=== PATIENT | female | born 1955 | race Caucasian/White ===

== ENCOUNTER → 2016-10-28 08:42 | Outpatient (CLI) | payer MEDICAID | END | disposition home or self-care (01) | LOC: D.MRI 08:42 | DX: M54.2 Cervicalgia (principal) ==

== ENCOUNTER → 2016-11-16 11:06 | Outpatient (CLI) | payer MEDICAID | END | disposition home or self-care (01) | LOC: D.MRI 11:06 | DX: M54.2 Cervicalgia (principal) ==

== ENCOUNTER → 2018-06-06 09:31 | Outpatient (CLI) | payer MEDICAID | END | disposition home or self-care (01) | LOC: D.RAD 09:31 | DX: M54.2 Cervicalgia (principal) ==

== ENCOUNTER 2020-02-29 08:35 | Day surgery (SDC) | payer MEDICAID ==
[2020-02-28 12:24] LABS: CALC OSMOLALITY 274 mosm/kg (275-300); CALCIUM 8.9 mg/dL (8.5-10.1); CARBON DIOXIDE 27.9 mmol/L (21.0-32.0); CHLORIDE - SERUM 102 mmol/L (98-107); CREATININE - SERUM 0.7 mg/dL (0.6-1.3); GLUCOSE 179 mg/dL (74-106); SODIUM 136 mmol/L (136-145); UREA NITROGEN 10 mg/dL (7-18); eGFR NON AFRICAN AMERICAN 89 mL/min (90-120)
[2020-02-28 12:25] LABS: BASOPHILS 0.3 % (0-2); EOSINOPHILS 1.1 % (0-7); HEMATOCRIT 41.3 % (36.0-48.0); HEMOGLOBIN 13.4 g/dL (12-16); IMMATURE GRANULOCYTES 0.4 % (0-5); LYMPHOCYTES 42.8 % (15-50); MCH 28.3 pg (26.0-34.0); MCHC 32.4 g/dL (31.0-37.0); MCV 87.3 fL (80.0-100.0); MONOCYTES 6.4 % (2-11); PLATELET COUNT 199 10x3/uL (130-400); RBC 4.73 10x6/uL (4.00-5.40); RDW 13.9 % (11.5-14.5); WBC 7.1 10x3/uL (4.8-10.8)
[~2020-02-29] VITALS: Ht 165.1 cm; Wt 83.5 kg
--- NOTE | ~2020-02-29 | OP ---
PATIENT NAME: ROMEO MAST MEDICAL RECORD: [id number] :55 LOCATION:D.OPS ADMISSION DATE: SURGEON: DARRIUS BERRY MD DATE OF OPERATION: 02/29/2020 PREOPERATIVE DIAGNOSES: 1. Ventral hernia. 2. Hypertension. POSTOPERATIVE DIAGNOSES: 1. Ventral hernia. 2. Hypertension. PROCEDURE: Ventral hernia repair with 4.[address] mesh. SURGEON: Darrius Berry MD REPORT OF PROCEDURE: The patient's abdomen was prepped and draped in sterile fashion. A semicircular incision was made on the inferior aspect of the umbilicus. Electrocautery was used to dissect through the subcutaneous tissues. Just to the right of the umbilicus, there was opening that was present with a hernia sac containing omental fat. We were able to open up the hernia sac and dissect this down to the fascial edges. The hernia sac was completely excised at the fascial edges and we were able to push the omental contents back into the abdominal cavity. I then was able to stick my finger into the opening and palpate the abdominal wall and could feel no evidence of any further herniations present. We undermined the tissues around the umbilicus leaving the umbilicus in position. We were able to insert a 4.[address] mesh in an underlay fashion and sutured down on all 4 sides using interrupted 0 Prolenes. The fascia was then closed transversely over the mesh using a running 0 Vicryl. The wound was irrigated out with normal saline. The subcutaneous tissues were reapproximated with interrupted 3-0 Vicryl and the skin was closed with running subcutaneous 5-0 Monocryl. A 10 mL of 0.25% Marcaine plain were infused into the surrounding tissues and the wound was dressed appropriately. COMPLICATIONS: None. CONDITION: Stable. ANESTHESIA: General endotracheal and local. BLOOD LOSS: Minimal. TRANSINT:[id number] Voice Confirmation ID: [id number] DOCUMENT ID: [id number] DARRIUS BERRY MD CC: ADEN PABLO [id number] DICTATION DATE: 02/29/20 1118 LAV CREWMAN: 02/29/20 1303 [facility] [address] [place] [address]
[~2020-02-29 08:35] MED LIST: COREG6.25 MG PO; HYDROCHLOROTH12.5 M1 PO; RELAFEN500 MG PO
[2020-02-29] MEDS ORDERED: NORVASC5 MG PO (09:04)
[2020-02-29 09:27] VITALS: BP 129/68; Ht 165.1 cm; Wt 83.5 kg
[2020-02-29] MEDS ORDERED: HYDROCODON-ACE1 EA10 PO (11:14)
--- NOTE | 2020-02-29 17:54 | NUR ---
1243 IV DC'D. CATHETER TIP INTACT. NO BLEEDING AT SITE. BANDAID APPLIED. PT VOICES UNDERSTANDING OF DISCHARGE INSTRUCTIONS THAT WERE REVIEWED WITH HER.
== END 2020-02-29 13:00 | disposition home or self-care (01) ==
LOC: D.OPS 08:35 → D.PAN 10:30 → D.OPS 13:00
PROVIDERS: ATTEND Surgery
DX: K43.9 Ventral hernia without obstruction or gangrene (principal); I10 Essential (primary) hypertension